=== PATIENT | male | born 1950 | race Caucasian/White ===

== ENCOUNTER 2024-04-16 22:27 | Emergency (ER) | payer OTHER, BC ==
[2024-04-16 22:37] VITALS: BMI 24.5
[2024-04-16] MEDS ORDERED: TRANEXAMIC ACID 1000 MG/10 ML VIAL ONE (22:39)
[2024-04-16] MEDS: TRANEXAMIC ACID 1000 MG/10 ML VIAL IVPUSH ONE (22:40)
[2024-04-16 22:44] VITALS: TEMP 98.8
[2024-04-17 00:09] VITALS: BP 149/94; PULSE 73; RESP 18
== END 2024-04-17 00:11 | disposition home or self-care (01) ==
LOC: FER 22:27
PROC: 3E033GC Introduction of Other Therapeutic Substance into Peripheral Vein, Percutaneous Approach (ICD-10-PCS; principal; 2024-04-16)
DX: R04.0 Epistaxis (principal)
CPT/HCPCS: 99284-25